=== PATIENT | female | born 2000 | race African-American/Black ===

== ENCOUNTER 2025-06-12 10:45 | Emergency (ER) | payer OTHER ==
[~2025-06-12] VITALS: Ht 167.6 cm; Wt 77.0 kg
[2025-06-12 10:50] VITALS: O2SAT 99
[2025-06-12] MEDS: ACETAMINOPHEN 325MG TABLET PO ONE (11:29)
[2025-06-12 13:16] VITALS: BP 118/74; PULSE 89; RESP 16; TEMP 36.8; O2SAT 100
== END 2025-06-12 13:18 | disposition home or self-care (01) ==
LOC: ER 10:45
DX: R51.9 Headache, unspecified (principal); M25.572 Pain in left ankle and joints of left foot
CPT/HCPCS: 73610; 99291; A4606